=== PATIENT | male | born 1980 | race Caucasian/White ===

== ENCOUNTER 2017-06-19 17:58 | Emergency (ER) | payer BC ==
[2017-06-19 18:20] VITALS: BP 147/86
--- NOTE | 2017-06-19 19:43 | EDM.PDOC ---
ED HPI GENERAL MEDICAL PROBLEM - General Chief Complaint: Eye Problems Stated Complaint: L EYE COMPLAINT Time Seen by Provider: 06/19/17 19:09 Source of Information: Reports: Patient History Limitations: Reports: No Limitations - History of Present Illness INITIAL COMMENTS - FREE TEXT/NARRATIVE: Patient is a 37-year-old male who presents to the ED complaining of left eye problems. States he was soldering a copper line in a dark basement for approximately 4 hours today. Since then he's been experiencing blurred vision in his left eye. He reports his eye loses focuses and with rubbing his eye returns. He was not wearing goggles at that time but did wear glasses. He has no pain or sensation of foreign object present. There has been no abnormal eye discharge. He did rinse his eye out with water. No change noted. Eye did become mildly red. Again he has no pain present or the sensation of foreign object present. No floating objects, curtain drop sensation, flashing lights, photosensitivity, or any additional complaints. He's never had symptoms as such. Patient does wear glasses and denies wearing contacts today. He does have a local band leader present. - Related Data Allergies Allergy/AdvReac Type Severity Reaction Status Date / Time Penicillins Allergy Hives Verified 03/27/15 04:42 Home Meds: Home Meds PARoxetine HCl [Paxil Cr] 10 mg PO DAILY 03/27/15 [History] Lisinopril [Zestril] 20 mg PO DAILY 06/19/17 [History] Past Medical History - Past Health History Medical/Surgical History: Denies Medical/Surgical History HEENT History: Reports: Other (See Below) Other HEENT History: wears glasses Social & Family History - Family History Family Medical History: Noncontributory - Tobacco Use Smoking Status *Q: Never Smoker Second Hand Smoke Exposure: No - Caffeine Use Caffeine Use: Reports: Coffee - Recreational Drug Use Recreational Drug Use: No ED ROS GENERAL - Review of Systems Review Of Systems: ROS reveals no pertinent complaints other than HPI. ED EXAM GENERAL W FULL EYE - Physical Exam Exam: See Below Exam Limited By: No Limitations General Appearance: Alert, WD/WN, No Apparent Distress Eye Exam: Bilateral Eye: EOMI, Nystagmus (And found), PERRL Visual Acuity (R) 20/: 20 Visual Acuity (L) 20/: 20 With Correction: Yes Eyelids: Bilateral: Normal Appearance Conjunctiva & Sclera: Right: Normal Appearance, Left: Discharge (No discharge), Injected (Mild) Cornea Exam: Bilateral: Normal Appearance Extraocular Movements: Bilateral: Intact Pupillary Size: Bilateral: 4 mm Pupillary Reaction: Bilateral: Sluggish Ears: Hearing Grossly Normal Nose: Normal Inspection Throat/Mouth: Normal Voice, No Airway Compromise Neck: Normal Inspection, Supple Respiratory/Chest: No Respiratory Distress, No Accessory Muscle Use Cardiovascular: Normal Peripheral Pulses, Regular Rate, Rhythm Neurological: Alert, Oriented, CN II-XII Intact, Normal Cognition, No Motor/ Sensory Deficits Psychiatric: Normal Affect, Normal Mood Skin Exam: Warm, Dry, Intact, Normal Color Course - Vital Signs Last Recorded V/S: Last Vital Signs Temp 98.5 F 06/19/17 18:14 Pulse 78 06/19/17 18:14 Resp 15 06/19/17 18:14 BP 147/86 H 06/19/17 18:14 Pulse Ox 98 06/19/17 18:14 - Re-Assessments/Exams Free Text/Narrative Re-Assessment/Exam: On examination patient had no concerning findings. EOMs are intact. Pupils were reactive. No foreign body sensation present. No discharge present. Mild erythema to the conjunctiva secondary to rinsing his eye out with water. Otherwise visual acuity was normal with corrective wear. At this point do not have a clear etiology to the current complaint. I suspect if this was related to the soldering fumes that both eyes would have been affected. Plan is to discharge patient home with instructions to follow-up with an band leader tomorrow for reevaluation. No treatment required at this point. Departure - Departure Time of Disposition: 19:43 Disposition: Home, Self-Care 01 Condition: Good Clinical Impression: Left eye complaint - Discharge Information Referrals: PCP,None [Primary Care Provider] - Forms: ED Department Discharge Additional Instructions: Unclear etiology of current complaint. Symptoms are gradually improving since onset. Examination did not really reveal any concerning findings at this point. See your band leader tomorrow or the next day for reevaluation. Refrain from itching your eye. Do not wear any contacts. Wear glasses only. Return to the ED for any new or worsening symptoms.
== END 2017-06-19 19:58 | disposition home or self-care (01) ==
LOC: JD.ED 17:58
DX: H53.8 Other visual disturbances (principal); Z79.899 Other long term (current) drug therapy; Z88.0 Allergy status to penicillin
CPT/HCPCS: 99282; 99283

== ENCOUNTER 2018-07-01 03:58 | Emergency (ER) | payer BC ==
[2018-07-01 04:09] VITALS: BP 140/85
[2018-07-01] MEDS ORDERED: Dexamethasone 4 MG/ML 5 ML MDV ONE (04:14)
[2018-07-01] MEDS ORDERED: diphenhydrAMINE 50 MG Cap PO ONE (04:16)
[2018-07-01] MEDS ORDERED: Dexamethasone 10 MG/ML SDV ONE (04:18)
--- NOTE | 2018-07-01 04:18 | EDM.PDOC ---
ED HPI GENERAL MEDICAL PROBLEM - General Chief Complaint: ENT Problem Stated Complaint: THROAT SWELLING Time Seen by Provider: 07/01/18 04:07 Source of Information: Reports: Patient History Limitations: Reports: No Limitations - History of Present Illness INITIAL COMMENTS - FREE TEXT/NARRATIVE: 38 y/o M with sensation of uvula swelling. Drank 5 gin and tonics last night. Woke up with sensation of enlarged uvula. It's not painful. Feels like he constantly needs to clear his throat. Has minimal throat pain. No additional pharygeal/mouth/facial swelling. No itching. No hx similar symptoms previously. No fever/recent illness. - Related Data Allergies Allergy/AdvReac Type Severity Reaction Status Date / Time Penicillins Allergy Hives Verified 07/01/18 04:09 Home Meds: Home Meds Lisinopril [Zestril] 20 mg PO DAILY 06/19/17 [History] Doxazosin [Doxazosin Mesylate] 4 mg PO DAILY 07/01/18 [History] FLUoxetine HCl [Prozac] 20 mg PO DAILY 07/01/18 [History] Past Medical History - Past Health History Medical/Surgical History: Denies Medical/Surgical History HEENT History: Reports: Other (See Below) Other HEENT History: wears glasses, states hx of tonsil problems Cardiovascular History: Reports: Hypertension Psychiatric History: Reports: Depression Social & Family History - Family History Family Medical History: Noncontributory - Tobacco Use Smoking Status *Q: Never Smoker - Caffeine Use Caffeine Use: Reports: Soda - Alcohol Use Date of Last Drink: 06/30/18 Time of Last Drink: 21:00 - Recreational Drug Use Recreational Drug Use: No ED ROS ENT - Review of Systems Review Of Systems: See Below Constitutional: Denies: Fever HEENT: Reports: Other (uvula swelling ) Respiratory: Denies: Shortness of Breath Cardiovascular: Denies: Chest Pain Endocrine: Reports: No Symptoms GI/Abdominal: Reports: No Symptoms Musculoskeletal: Reports: No Symptoms Skin: Denies: Rash Neurological: Reports: No Symptoms ED EXAM, ENT - Physical Exam Exam: See Below Exam Limited By: No Limitations General Appearance: Alert, WD/WN, No Apparent Distress Eye Exam: Bilateral Eye: Normal Inspection Ears: Normal External Exam Nose: Normal Inspection Mouth/Throat: Tonsillar Erythema, Uvular Edema (mild ). No: Throat Swelling, Tonsillar Exudates, Tonsillar Swelling, Uvular Deviation Head: Atraumatic, Normocephalic Neck: Normal Inspection, Supple, Non-Tender Respiratory/Chest: No Respiratory Distress, Lungs Clear, Normal Breath Sounds, Chest Non-Tender Cardiovascular: Normal Peripheral Pulses, Regular Rate, Rhythm Back: Normal Inspection Extremities: Normal Inspection Neurological: Alert, Oriented, Normal Cognition, No Motor/Sensory Deficits Psychiatric: Normal Affect, Normal Mood Skin: Warm, Dry, Intact, Normal Color, No Rash Course - Vital Signs Last Recorded V/S: Last Vital Signs Temp 36.7 C 07/01/18 04:00 Pulse 83 07/01/18 04:00 Resp 18 07/01/18 04:00 BP 140/85 07/01/18 04:00 Pulse Ox 98 07/01/18 04:00 - Orders/Labs/Meds Orders: Active Orders 24 hr Category Date Time Status CULTURE STREP A CONFIRMATION [RM] Stat Lab 07/01/18 04:20 Results Rapid Strep w/culture conf [STREP SCRN A RAPID W CULT Lab 07/01/18 04:20 Results CONF] [RM] Stat Meds: Medications Discontinued Medications Generic Name Dose Route Start Last Admin Trade Name Nandoq PRN Reason Stop Dose Admin Dexamethasone 10 mg 07/01/18 04:14 07/01/18 04:20 Dexamethasone .XX 07/01/18 04:15 Not Given ONETIME ONE Dexamethasone 10 mg 07/01/18 04:20 07/01/18 04:20 Dexamethasone PO 07/01/18 04:21 10 mg ONETIME ONE Administration Dexamethasone Confirm 07/01/18 04:18 07/01/18 04:23 Dexamethasone Administered 07/01/18 04:19 Not Given Dose 10 mg .ROUTE .STK-MED ONE Diphenhydramine HCl 50 mg 07/01/18 04:16 07/01/18 04:22 Benadryl PO 07/01/18 04:17 50 mg ONETIME ONE Administration Departure - Departure Time of Disposition: 04:30 Disposition: Home, Self-Care 01 Clinical Impression: Uvular swelling - Discharge Information Instructions: Uvulitis Referrals: Candace Sanchez [Primary Care Provider] - Forms: ED Department Discharge Additional Instructions: 1. Take benadryl every 6 hours, this may help with the mild swelling 2. Return to the ED if the swelling gets worse or if you have any further facial swelling or for any other concerning symptoms 3. You will receive a phone call if you need antibiotics according to your strep test 4. Follow up in clinic ([phone]) ideally within a week - My Orders Last 24 Hours: My Active Orders 07/01/18 04:20 CULTURE STREP A CONFIRMATION [RM] Stat Rapid Strep w/culture conf [STREP SCRN A RAPID W CULT CONF] [RM] Stat - Assessment/Plan Last 24 Hours: My Active Orders 07/01/18 04:20 CULTURE STREP A CONFIRMATION [RM] Stat Rapid Strep w/culture conf [STREP SCRN A RAPID W CULT CONF] [RM] Stat
[2018-07-01] MEDS ORDERED: Dexamethasone 10 MG/ML SDV PO ONE (04:20)
== END 2018-07-01 04:25 | disposition home or self-care (01) ==
LOC: JD.ED 03:58
DX: R22.0 Localized swelling, mass and lump, head (principal); Z79.899 Other long term (current) drug therapy
CPT/HCPCS: 87081; 87430; 99283; A9270; J1100